=== PATIENT | male | born 1945 | race Caucasian/White ===

== ENCOUNTER 2017-09-14 20:55 | Inpatient (IN) | payer OTHER ==
[~2017-09-14] VITALS: Ht 175.3 cm; Wt 99.1 kg
[~2017-09-14 20:55] MED LIST: ALPR1TAB3 PO; BUPR-79 PO; CINN500T PO; LSN/10125 PO; MCR5 PO; METF-384 PO; MULT-506 PO; PROB1TAB16 PO; TRAZ-122 PO; ULT50X PO; VNTHFA/IN INH; ZCR80 PO; ZYP25 PO; [UNRECOGNIZED DRUG - OTHER] PO; [UNRECOGNIZED DRUG - OTHER] PO
--- NOTE | 2017-09-14 21:37 | EMERGENCY ROOM VISIT NOTE ---
History Report prepared by Candice: Anastasiia Cheney Under the Supervision of: Dr. Tera Fuller M.D. First contact with patient: 21:02 Stated Complaint: NEURO SX History of Present Illness The patient is a 72 year old male who presents to the Emergency Room with complaints of persistent general weakness for an unknown time. Per sister, the patient refused to leave his home, so she went to check on him. She found him on the floor of his home at 1300 and it took three hours to get him to stand up. She notes that the patient was leaning to his left and he seemed mentally abnormal, though she notes that she does not see him on a regular basis. It is unknown how long the patient was on the floor. He reports the need to urinate. He reports shaking that has been ongoing for several months. The patient has a history of COPD. He is a current smoker. He has a history of diabetes. His blood glucose sugar was 104. He reports living alone. He has a history of Parkinson's disease. He has a baseline rash to his face. He denies any congestion, vomiting, headache, or shortness of breath. Source of History: patient, family Onset: an unknown time Position: other (general) Quality: other (weakness) Timing: other (persistent) Associated Symptoms: + urinary symptoms (need to urinate, though cannot), No headache, No SOB, No vomiting Note: Denies any congestion. Review of Systems See HPI for pertinent positives & negatives. A total of 10 systems reviewed and were otherwise negative. Past Medical & Surgical Medical Problems: (1) Depression (2) DM (diabetes mellitus) (3) HTN (hypertension) (4) Hyperlipidemia (5) Left-sided weakness (6) Rhabdomyolysis Family History No pertinent family history Social History Smoking Status: Current Every Day Smoker Alcohol Use: heavy Drug Use: marijuana Marital Status: single Housing Status: lives alone Occupation Status: disabled Current/Historical Medications Scheduled Alprazolam (Xanax), 1 MG PO BID Bupropion (Wellbutrin Sr), 150 MG PO BID Cinnamon (Cinnamon), 1 TAB PO QAM Glyburide (Glyburide), 1 TAB PO BID Hctz/Lisinopril (Lisinopril/Hctz 10/12.5 Mg), 1 TAB PO QAM Metformin Hcl (Glucophage), 1,000 MG PO BID Multivitamin (Multivitamin), 1 TAB PO QAM Olanzapine (Olanzapine), 1 TAB PO BID Probiotic Product (Probiotic), 1 TAB PO QAM Simvastatin (Simvastatin), 1 TAB PO QPM Trazodone Hcl (Desyrel), 100 MG PO HS [Diabetic Formula], 1 TAB PO QAM [Gynnemasylzestra], 400 MG PO QAM Scheduled PRN Albuterol Hfa (Ventolin Hfa), 2 PUFFS INH Q4H PRN for SOB/Wheezing Tramadol HCl (Tramadol HCl), 50 MG PO Q12 PRN for Pain Allergies Coded Allergies: No Known Allergies (Verified , 09/14/17) Physical Exam Vital Signs Date Time Temp Pulse Resp B/P (MAP) Pulse Ox O2 Delivery O2 Flow Rate FiO2 09/14/17 22:46 81 109/86 94 Room Air 09/14/17 22:08 80 16 104/58 94 Room Air 09/14/17 21:33 Room Air 09/14/17 21:30 36.7 84 116/69 93 Room Air 09/14/17 21:15 86 Physical Exam GENERAL: Patient is in no acute distress. HEENT: No acute trauma, normocephalic atraumatic, mucous membranes dry, no nasal congestion, no scleral icterus. NECK: No stridor, no adenopathy, no meningismus, trachea is midline. LUNGS: Clear to auscultation bilaterally, no wheeze, no rhonchi, breath sounds equal. HEART: Mildly tachycardic with a regular rhythm. 3/6 systolic murmur. ABDOMEN: Soft, nontender, bowel sounds positive, no hernias, no peritonitis. EXTREMITIES: No cyanosis or edema, full range of motion of all the joints without pain or difficulty, no signs for acute trauma. NEUROLOGIC: No facial droop or slurred speech. No extremity drift. No focal motor deficits. Extremity tremor noted. SKIN: Flat erythematous rash on the face. No cellulitis. Medical Decision & Procedures ER Provider Diagnostic Interpretation: Radiology results as stated below per my review and radiologist interpretation: SINGLE VIEW CHEST CLINICAL HISTORY: Strokelike symptoms. FINDINGS: An AP, portable, upright chest radiograph is compared to study dated 09/11/2013. The examination is degraded by portable technique and patient rotation. The heart is top normal for projection and there is atherosclerotic calcification of the thoracic aorta. The pulmonary vasculature is noncongested. There is mild elevation of the left hemidiaphragm with associated atelectasis. No airspace consolidation or pleural effusion is identified. There is no pneumothorax. The skeletal structures are osteopenic. The bony thorax appears intact. IMPRESSION: No acute cardiopulmonary abnormality. Electronically signed by: Tera Jeffreis M.D. 09/14/2017 9:40 PM Dictated Date/Time: 09/14/2017 9:[address] SCAN OF THE BRAIN WITHOUT IV CONTRAST CLINICAL HISTORY: Strokelike symptoms. COMPARISON STUDY: CT of the brain dated 05/09/2016. TECHNIQUE: Unenhanced axial CT scan of the brain is performed from the vertex to the skull base. A dose lowering technique was utilized adhering to the principles of ALARA. CT DOSE: 614.27 mGy.cm FINDINGS: Brain parenchyma: There are age-related involutional changes noting mild subcortical and periventricular microangiopathic change. There is no hemorrhage, mass effect, or evidence of acute territorial ischemia by CT criteria. Rubi-white matter is preserved. No extra-axial fluid collection is seen. Ventricles, sulci, cisterns: Prominent secondary to involutional change. Intracranial vasculature: There is atherosclerotic calcification of the cavernous carotid arteries. Calvarium: Unremarkable. Sinuses and mastoids: Mild mucosal thickening is seen in the ethmoid sinuses. The remaining visualized paranasal sinuses are clear. The mastoid air cells are well pneumatized. Orbits: The bony orbits are grossly intact. There is a right ocular lens implant. IMPRESSION: There is no hemorrhage, mass effect, or evidence of acute territorial ischemia by CT criteria. Electronically signed by: Tera Jeffries M.D. 09/14/2017 9:55 PM Dictated Date/Time: 09/14/2017 9:53 PM Laboratory Results 09/14/17 21:28 Red Blood Count 4.32, Mean Corpuscular Volume 86.1, Mean Corpuscular Hemoglobin 28.5, Mean Corpuscular Hemoglobin Concent 33.1, Mean Platelet Volume 9.0, Neutrophils (%) (Auto) 59.2, Lymphocytes (%) (Auto) 27.0, Monocytes (%) (Auto) 9.9, Eosinophils (%) (Auto) 3.5, Basophils (%) (Auto) 0.3, Neutrophils # (Auto) 5.76, Lymphocytes # (Auto) 2.62, Monocytes # (Auto) 0.96, Eosinophils # (Auto) 0.34, Basophils # (Auto) 0.03 09/14/17 21:28 Test 09/14/17 21:14 09/14/17 21:28 09/14/17 21:29 Urine Color YELLOW Urine Appearance CLEAR (CLEAR) Urine pH 5.0 (4.5-7.5) Urine Specific [place] 1.019 (1.000-1.030) Urine Protein NEG (NEG) Urine Glucose (UA) NEG (NEG) Urine Ketones NEG (NEG) Urine Occult Blood NEG (NEG) Urine Nitrite NEG (NEG) Urine Bilirubin NEG (NEG) Urine Urobilinogen NEG (NEG) Urine Leukocyte Esterase NEG (NEG) Urine Opiates Screen NEG (NEG) Urine Methadone, Qualitative NEG (NEG) Urine Barbiturates NEG (NEG) Urine Phencyclidine (PCP) Level NEG (NEG) Ur Amphetamine/Methamphetamine NEG (NEG) MDMA (Ecstasy) Screen POS (NEG) Urine Benzodiazepines Screen POS (NEG) Urine Cocaine Metabolite NEG (NEG) Urine Marijuana (THC) NEG (NEG) White Blood Count 9.72 K/uL (4.8-10.8) Red Blood Count 4.32 M/uL (4.7-6.1) Hemoglobin 12.3 g/dL (14.0-18.0) Hematocrit 37.2 % (42-52) Mean Corpuscular Volume 86.1 fL (80-100) Mean Corpuscular Hemoglobin 28.5 pg (25-34) Mean Corpuscular Hemoglobin Concent 33.1 g/dl (32-36) Platelet Count 251 K/uL (130-400) Mean Platelet Volume 9.0 fL (7.4-10.4) Neutrophils (%) (Auto) 59.2 % Lymphocytes (%) (Auto) 27.0 % Monocytes (%) (Auto) 9.9 % Eosinophils (%) (Auto) 3.5 % Basophils (%) (Auto) 0.3 % Neutrophils # (Auto) 5.76 K/uL (1.4-6.5) Lymphocytes # (Auto) 2.62 K/uL (1.2-3.4) Monocytes # (Auto) 0.96 K/uL (0.11-0.59) Eosinophils # (Auto) 0.34 K/uL (0-0.5) Basophils # (Auto) 0.03 K/uL (0-0.2) RDW Standard Deviation 46.1 fL (36.4-46.3) RDW Coefficient of Variation 14.4 % (11.5-14.5) Immature Granulocyte % (Auto) 0.1 % Immature Granulocyte # (Auto) 0.01 K/uL (0.00-0.02) Anion Gap 9.0 mmol/L (3-11) Est Creatinine Clear Calc Drug Dose 76.0 ml/min Estimated GFR () 85.9 Estimated GFR (Non- 74.1 BUN/Creatinine Ratio 13.8 (10-20) Lactic Acid Level 1.2 mmol/L (0.4-2.0) Calcium Level 8.2 mg/dl (8.5-10.1) Magnesium Level 1.6 mg/dl (1.8-2.4) Total Bilirubin 0.3 mg/dl (0.2-1) Direct Bilirubin < 0.1 mg/dl (0-0.2) Aspartate Amino Transf (AST/SGOT) 27 U/L (15-37) Alanine Aminotransferase (ALT/SGPT) 25 U/L (12-78) Alkaline Phosphatase 61 U/L (45-117) Ammonia 33.1 umol/L (11-32) Total Creatine Kinase 894 U/L (39-308) Creatine Kinase MB 3.0 ng/ml (0.5-3.6) Creatine Kinase MB Ratio 0.3 (0-3.0) Troponin I < 0.015 ng/ml (0-0.045) Total Protein 6.6 gm/dl (6.4-8.2) Albumin 3.7 gm/dl (3.4-5.0) Thyroid Stimulating Hormone (TSH) 1.080 uIu/ml (0.300-4.500) Chemistry Specimen Hemolysis Ethyl Alcohol mg/dL < 3.0 mg/dl (0-3) Prothrombin Time 10.6 SECONDS (9.0-12.0) Prothromb Time International Ratio 1.0 (0.9-1.1) Activated Partial Thromboplast Time 27.4 SECONDS (21.0-31.0) Partial Thromboplastin Ratio 1.1 Laboratory results reviewed by me. Medications Administered Medications (Trade) Dose Ordered Sig/Jovanna Route Start Time Stop Time Status Last Admin Dose Admin Magnesium Sulfate (Magnesium Sulfate) 2 gm NOW STAT IV 09/14/17 22:08 09/14/17 22:09 DC 09/14/17 22:23 2 GM Sodium Chloride 500 ml @ 999 mls/hr Q31M STAT IV 09/14/17 22:26 09/14/17 22:56 DC 09/14/17 22:45 999 MLS/HR ECG Per My Interpretation Indication: weakness Rate (beats per minute): 87 Rhythm: normal sinus Findings: no ectopy (No PVC), other (No ST elevation) ED Course 2101: The patient was evaluated in room B12B. A complete history and physical exam was performed. 2110: The nurse reports that the patient urinated 500 ml. 2207: Ordered Magnesium Sulfate 2 gm IV 2225: Ordered Sodium Chloride 500 ml @ 999 mls/hr IV 4: I reassessed the patient at this time. I discussed the results and treatment plan with the patient. He states that he is a and is followed with the [facility]. I answered all pertaining questions that he had. He expressed understanding and verbalized agreement. 2299: I spoke with Dr. Bruno, [facility] hospitalist. We discussed the patient' s case. The patient will be evaluated by the [facility] for further management. Medical Decision The patient is a 72 year old male who presents to the ED with complaints of weakness. Differential diagnoses considered include stroke, infection, UTI, intracranial bleeding, dehydration, NM, anemia, sepsis, and electrolyte abnormality. There is no leukocytosis or concerning anemia. No kidney failure. Magnesium is low at 1.6. No hepatitis. Lactic acid level is not elevated making sepsis less likely. The patient appears to be in a euthyroid state. Chest film does not show pneumonia or CHF. Brain CT shows no acute bleed or mass-effect. EKG shows a normal sinus rhythm, no acute ischemia. Cardiac enzyme testing 1 is not consistent with acute cardiac injury. Ammonia level is very slightly elevated but I do not think high enough to cause confusion. Alcohol level is undetectable. Total CK is somewhat elevated consistent with some muscle breakdown from being on the floor today for around at least 3 hours. Urinalysis does not show infection. On exam, there are no focal neurologic deficits. The patient is awake and interactive. The patient received IV saline, IV magnesium. The patient is eating crackers, he seems improved. He presents with some increased weakness, a fall earlier, some confusion as per family. His mental state seems improved though I think now. Given the findings, further workup in the hospital is warranted. The cause for his entire presentation is not completely clear. I did speak with the patient, case management has been involved. I discussed the case with the on-call hospitalist. Medication Reconcilliation Current Medication List: was personally reviewed by me Blood Pressure Screening Patient's blood pressure: Normal blood pressure Consults Time Called: 2245 Consulting Physician: Dr. Bruno [facility] Returned Call: [phone] [facility] We discussed the patient's case. The patient will be evaluated by the [facility] for further management. Impression Primary Impression: Weakness Additional Impressions: Fall Dehydration Change in mental status Hypomagnesemia Scribe Attestation The scribe's documentation has been prepared under my direction and personally reviewed by me in its entirety. I confirm that the note above accurately reflects all work, treatment, procedures, and medical decision making performed by me. Departure Information Dispostion Being Evaluated By Hospitalist Referrals Jannet Kilgore M.D. (PCP) Problem Qualifiers
[2017-09-14 21:40] LABS: BASO % 0.3 %; BASO ABS # 0.03 K/uL (0-0.2); EOS % 3.5 %; EOS ABS # 0.34 K/uL (0-0.5); HEMATOCRIT 37.2 % (42-52); HEMOGLOBIN 12.3 g/dL (14.0-18.0); IG# 0.01 K/uL (0.00-0.02); LYMPH ABS # 2.62 K/uL (1.2-3.4); MEAN CELL VOLUME 86.1 fL (80-100); MEAN CORPUSCULAR HEMOGLOBIN 28.5 pg (25-34); MEAN CORPUSCULAR HGB CONC 33.1 g/dl (32-36); MONO % 9.9 %; MONO ABS # 0.96 K/uL (0.11-0.59); NEUT % 59.2 %; NEUT ABS # 5.76 K/uL (1.4-6.5); PLATELET COUNT 251 K/uL (130-400); RED CELL DISTRIBUTION WIDTH CV 14.4 % (11.5-14.5); RED CELL DISTRIBUTION WIDTH SD 46.1 fL (36.4-46.3); WHITE BLOOD COUNT 9.72 K/uL (4.8-10.8)
--- NOTE | 2017-09-14 21:42 | DIAGNOSTIC IMAGING REPORT ---
SINGLE VIEW CHEST CLINICAL HISTORY: Strokelike symptoms. FINDINGS: An AP, portable, upright chest radiograph is compared to study dated 09/11/2013. The examination is degraded by portable technique and patient rotation. The heart is top normal for projection and there is atherosclerotic calcification of the thoracic aorta. The pulmonary vasculature is noncongested. There is mild elevation of the left hemidiaphragm with associated atelectasis. No airspace consolidation or pleural effusion is identified. There is no pneumothorax. The skeletal structures are osteopenic. The bony thorax appears intact. IMPRESSION: No acute cardiopulmonary abnormality. Electronically signed by: Tera Jeffries M.D. 09/14/2017 9:40 PM Dictated Date/Time: 09/14/2017 9:39 PM
--- NOTE | 2017-09-14 21:57 | DIAGNOSTIC IMAGING REPORT ---
CT SCAN OF THE BRAIN WITHOUT IV CONTRAST CLINICAL HISTORY: Strokelike symptoms. COMPARISON STUDY: CT of the brain dated 05/09/2016. TECHNIQUE: Unenhanced axial CT scan of the brain is performed from the vertex to the skull base. A dose lowering technique was utilized adhering to the principles of ALARA. CT DOSE: 614.27 mGy.cm FINDINGS: Brain parenchyma: There are age-related involutional changes noting mild subcortical and periventricular microangiopathic change. There is no hemorrhage, mass effect, or evidence of acute territorial ischemia by CT criteria. Rubi-white matter is preserved. No extra-axial fluid collection is seen. Ventricles, sulci, cisterns: Prominent secondary to involutional change. Intracranial vasculature: There is atherosclerotic calcification of the cavernous carotid arteries. Calvarium: Unremarkable. Sinuses and mastoids: Mild mucosal thickening is seen in the ethmoid sinuses. The remaining visualized paranasal sinuses are clear. The mastoid air cells are well pneumatized. Orbits: The bony orbits are grossly intact. There is a right ocular lens implant. IMPRESSION: There is no hemorrhage, mass effect, or evidence of acute territorial ischemia by CT criteria. Electronically signed by: Tera Jeffries M.D. 09/14/2017 9:55 PM Dictated Date/Time: 09/14/2017 9:53 PM
[2017-09-14 22:00] LABS: PTT PATIENT 27.4 SECONDS (21.0-31.0)
[2017-09-14 22:04] LABS: BLOOD UREA NITROGEN 14 mg/dl (7-18); CALCIUM 8.2 mg/dl (8.5-10.1); CARBON DIOXIDE 26 mmol/L (21-32); CREATININE 1.02 mg/dl (0.60-1.40); GLUCOSE 107 mg/dl (70-99); SODIUM 139 mmol/L (136-145)
[2017-09-14] MEDS ORDERED: MAGNESIUM SULFATE 1GM / D5W 1 GM BAG IV STA (22:08)
[2017-09-14] MEDS ORDERED: SODIUM CHLORIDE 0.9% 500ML 500 ML IV STA (22:26)
[2017-09-14 22:31] LABS: ALBUMIN 3.7 gm/dl (3.4-5.0); ALKALINE PHOSPHATASE 61 U/L (45-117); ALT/SGPT 25 U/L (12-78); AST/SGOT 27 U/L (15-37); TOTAL PROTEIN 6.6 gm/dl (6.4-8.2)
[2017-09-14] MEDS ORDERED: ASPIRIN 81 MG CHEW PO STA (23:43)
[2017-09-15] VITALS (12 sets, daily range): BP systolic 83–131; BP diastolic 43–77; PULSE 72–92; TEMP 36.4–37; O2SAT 93–95; Ht 175.3 cm; Wt 99.1 kg
[2017-09-15] MEDS ORDERED: PROCHLORPERAZINE INJ 5 MG in SYRINGE 4 ML IV PRN (00:15)
[2017-09-15] MEDS ORDERED: ACETAMINOPHEN 325 MG TAB PO PRN (00:15)
[2017-09-15] MEDS ORDERED: GLUCOSE 10 TABS/TUBE PO PRN (00:15)
[2017-09-15] MEDS ORDERED: SODIUM CHLORIDE 0.9% 1000ML 1,000 ML IV ONE (00:15)
[2017-09-15] MEDS ORDERED: TRAMADOL HCL 50 MG TAB PO PRN (00:15)
[2017-09-15] MEDS ORDERED: PHARMACIST DISCHARGE MED REC CONSULT PRN (00:15)
[2017-09-15] MEDS ORDERED: DEXTROSE 50% 50 ML SYR IV PRN (00:15)
[2017-09-15] MEDS ORDERED: NITROGLYCERIN 0.4 MG SL PER TAB CHARGE SL PRN (00:15)
[2017-09-15] MEDS ORDERED: GLUCAGON FOR INJ 1 MG VIAL SQ PRN (00:15)
[2017-09-15] MEDS ORDERED: GLUCOSE 40% GEL 15 GM TUBE PO PRN (00:15)
[2017-09-15] MEDS ORDERED: INSULIN ASPART 100 UNITS/ML 3 ML PEN SC ONE (01:30)
[2017-09-15] MEDS ORDERED: INSULIN GLARGINE SOLOSTAR 100 UNITS/ML 3 ML PEN SC ONE (02:32)
--- NOTE | 2017-09-15 04:11 | HISTORY & PHYSICAL EXAMINATION ---
DATE OF ADMISSION: 09/14/2017 PRIMARY CARE DOCTOR: ELIANA. CHIEF COMPLAINT: Fall. HISTORY OF PRESENT ILLNESS: History obtained from patient, patient's sister, and records. Patient is a fair historian. Medical history significant for mood disorder, hypertension, hyperlipidemia, ongoing tobacco abuse, diabetes type 2 on oral meds, chronic anemia (baseline hemoglobin of 12), past alcohol abuse, ongoing tobacco abuse. Recent confinement April 2016 for encephalopathy secondary to alcohol intoxication, polysubstance abuse. This morning the patient's sister called patient at home to check on him. He was noted to have slurred speech. The patient's sister checked on the patient. She had always been worried about patient relapsing into his alcohol habit and patient somewhat being impulsive w/ taking his "psych pills." He was found home on the floor, awake but "obtunded" as per sister. As per patient, he has not drank alcohol in months. No alcoholic stench or empty liquor bottles when patient was found by sister at home. Patient denies chest pain, shortness of breath, syncope. Admits to not being sure about taking extra pills last night for mood, anxiety. New medication started for possible Parkinsons. Patient's sister helped him to the bed, gave him food and fluids. When she walked patient to help him to get to the bathroom, she noticed patient veering to the left side. Patient's sister worried about stroke. EMS called. Patient brought to Emergency Room. MEDICAL HISTORY: As above. SURGERIES: Parotidectomy, cataract surgery. HOME MEDICATIONS: As per list, glyburide, Glucophage, multivitamins, olanzapine, probiotic, simvastatin, trazodone, Desyrel, Ventolin, Xanax, bupropion, cinnamon diabetic formula. ALLERGIES: No known drug allergies. FAMILY HISTORY: Hypertension. PERSONAL AND SOCIAL HISTORY: Half pack a day. No chronic intake of alcoholic beverages. , lives by self . REVIEW OF SYSTEMS: As per HPI. All 10 systems reviewed. All other ROS negative. PHYSICAL EXAMINATION: VITAL SIGNS: Blood pressure was noted to be 116/69, pulse rate 84, RR 16, temperature 36.7, sats 93 on room air. GENERAL: Unkempt, obese. No respiratory distress. SKIN: Pallor, warm. HEENT: Pale palpebral conjunctiva. No ptosis. Dry mucosa. NECK: Short, supple. CHEST: Decreased effort, no tenderness. HEART: Regular rate and rhythm, no murmur. ABDOMEN: Some distention, nontender. EXTREMITIES: No edema. No gross deformities. No tenderness. NEUROLOGIC: Coherent, some deviation of the face to the left side on speech, unknown chronicity. Gait and stance not assessed. LABORATORY DATA: Hemoglobin was noted to be 12.3, hematocrit 7.2, white blood cell count 9.7, platelets 251. Sodium noted to be 139, potassium 4, chloride 104, CO2 26, BUN 14, creatinine 1, glucose 107. Mag 1.6, ammonia 32.1. CK was 394. Alcohol level was negative. UA positive for benzos and MDMA. CT head, no acute pathology. Chest x-ray, no acute finding. EKG as per my interpretation rate 85, normal sinus rhythm, right axis deviation. ASSESSMENT: 1. Encephalopathy likely secondary to polypharmacy (px on multiple home neuropsychotropics; patient also somewhat impulsive as per patient's sister's account regarding intake of higher doses than prescribed) rule out cerebrovascular accident with some left-sided weakness. 2. Mild rhabdomyolysis secondary to fall 3. hypertension, stable. 4. Ongoing tobacco abuse. 5. Past alcohol abuse. 6. Anxiety, mood disorder, anger issues unknown stability 7. Chronic anemia, hemoglobin baseline. 8. DM2 on oral meds, well controlled as of recent inpatient HgA1c of 7.3 last April 2016. PLAN: PCU neuro checks ASA for now for stroke prevention until stroke ruled out by MRI/MRA brain. May need additional stroke workup pending MRI results. Hold home neuropsychotropics for now until mentation improved. [facility], [facility]iatry visits) Follow CPK. IV fluids. ISS BG goal 140-180. Patient due for hemoglobin A1c check. Anemia workup. PT, OT eval. DVT prophylaxis with Lovenox subQ. DNR. Patient's sister requesting updates from providers Ms. Luzma Hester RN at [phone]. [facility]
[2017-09-15 05:20] LABS: BASO % 0.4 %; BASO ABS # 0.03 K/uL (0-0.2); EOS % 4.1 %; EOS ABS # 0.32 K/uL (0-0.5); HEMATOCRIT 33.5 % (42-52); HEMOGLOBIN 11.4 g/dL (14.0-18.0); IG# 0.01 K/uL (0.00-0.02); LYMPH % 31.7 %; LYMPH ABS # 2.47 K/uL (1.2-3.4); MEAN CELL VOLUME 86.6 fL (80-100); MEAN CORPUSCULAR HEMOGLOBIN 29.5 pg (25-34); MEAN PLATELET VOLUME 8.8 fL (7.4-10.4); MONO % 10.2 %; MONO ABS # 0.79 K/uL (0.11-0.59); NEUT % 53.5 %; NEUT ABS # 4.16 K/uL (1.4-6.5); PLATELET COUNT 217 K/uL (130-400); RED CELL DISTRIBUTION WIDTH CV 14.6 % (11.5-14.5); RED CELL DISTRIBUTION WIDTH SD 45.8 fL (36.4-46.3); RETIC COUNT % 1.1 % (0.5-2.0); WHITE BLOOD COUNT 7.78 K/uL (4.8-10.8)
[2017-09-15 05:38] LABS: BLOOD UREA NITROGEN 11 mg/dl (7-18); CARBON DIOXIDE 24 mmol/L (21-32); CREATININE 1.03 mg/dl (0.60-1.40); GLUCOSE 120 mg/dl (70-99); POTASSIUM 3.6 mmol/L (3.5-5.1); SODIUM 137 mmol/L (136-145)
[2017-09-15 05:44] LABS: CHOLESTEROL 79 mg/dl (0-200); LDL CHOLESTEROL CALCULATED 24 mg/dl; TRANSFERRIN 237 mg/dl (200-360)
[2017-09-15] MEDS: ENOXAPARIN 40 MG/0.4 ML SYR SC SCH (06:00)
[2017-09-15 07:21] LABS: HEMOGLOBIN A1C 7.3 % (4.5-5.6)
[2017-09-15] MEDS: INSULIN ASPART 100 UNITS/ML 3 ML PEN SC SCH ×4 (08:10→21:00)
[2017-09-15] MEDS: MULTIVITAMIN TAB PO SCH (08:11)
[2017-09-15] MEDS: NICOTINE 14 MG/24 HR TDSY TD SCH (08:12)
[2017-09-15] MEDS: LACTOBACILLUS ACIDOPHILUS (FLORANEX) TAB PO SCH (08:12)
[2017-09-15] MEDS: ASPIRIN 81 MG ECTAB PO SCH (08:12)
--- NOTE | 2017-09-15 13:49 | Progress Note ---
Medicine Progress Note Date & Time of Visit: Sep 15, 2017 at 13:25. Subjective Pt was seen and examined Lying in bed with no distress Pt said that he feels very sleeping he said that last thing that he remembered was that he took 1 extra ativan to help him sleep Pt said that he did not consume any alcohol He was recently starting on Parkinson med but he said that he has been tolerated the med well [facility] Denies any chest pain, palpitation, dizziness and SOB Objective Last 8 Hrs Date Time Temp Pulse Resp B/P (MAP) Pulse Ox O2 Delivery O2 Flow Rate FiO2 09/15/17 11:52 36.4 76 16 108/73 (85) 95 09/15/17 08:00 94 Room Air 09/15/17 07:50 85 131/48 (75) 81 83/43 (56) 84 114/76 (89) 09/15/17 07:08 36.5 74 16 115/77 (90) 94 Physical Exam: General- no acute distress, drowsy Head- atraumatic Eyes- PERRL, EOMI ENT- oropharynx clear Neck- supple, no JVD Lungs- clear to auscultation Heart- regular rhythm; Abdomen- normal bowel sounds, soft Extremities- no calf tenderness Neuro- alert, oriented, PERRL, EOMI Skin- warm & dry Laboratory Results: Last 24 Hours Test 09/14/17 21:14 09/14/17 21:28 09/14/17 21:29 09/15/17 02:11 Urine Color YELLOW Urine Appearance CLEAR Urine pH 5.0 Urine Specific [place] 1.019 Urine Protein NEG Urine Glucose (UA) NEG Urine Ketones NEG Urine Occult Blood NEG Urine Nitrite NEG Urine Bilirubin NEG Urine Urobilinogen NEG Urine Leukocyte Esterase NEG Urine Opiates Screen NEG Urine Methadone, Qualitative NEG Urine Barbiturates NEG Urine Phencyclidine (PCP) Level NEG Ur Amphetamine/Methamphetamine NEG MDMA (Ecstasy) Screen POS Urine Benzodiazepines Screen POS Urine Cocaine Metabolite NEG Urine Marijuana (THC) NEG White Blood Count 9.72 K/uL Red Blood Count 4.32 M/uL Hemoglobin 12.3 g/dL Hematocrit 37.2 % Mean Corpuscular Volume 86.1 fL Mean Corpuscular Hemoglobin 28.5 pg Mean Corpuscular Hemoglobin Concent 33.1 g/dl Platelet Count 251 K/uL Mean Platelet Volume 9.0 fL Neutrophils (%) (Auto) 59.2 % Lymphocytes (%) (Auto) 27.0 % Monocytes (%) (Auto) 9.9 % Eosinophils (%) (Auto) 3.5 % Basophils (%) (Auto) 0.3 % Neutrophils # (Auto) 5.76 K/uL Lymphocytes # (Auto) 2.62 K/uL Monocytes # (Auto) 0.96 K/uL Eosinophils # (Auto) 0.34 K/uL Basophils # (Auto) 0.03 K/uL RDW Standard Deviation 46.1 fL RDW Coefficient of Variation 14.4 % Immature Granulocyte % (Auto) 0.1 % Immature Granulocyte # (Auto) 0.01 K/uL Sodium Level 139 mmol/L Potassium Level 4.0 mmol/L Chloride Level 104 mmol/L Carbon Dioxide Level 26 mmol/L Anion Gap 9.0 mmol/L Blood Urea Nitrogen 14 mg/dl Creatinine 1.02 mg/dl Est Creatinine Clear Calc Drug Dose 76.0 ml/min Estimated GFR () 85.9 Estimated GFR (Non- 74.1 BUN/Creatinine Ratio 13.8 Random Glucose 107 mg/dl Estimated Average Glucose 163 mg/dl Hemoglobin A1c 7.3 % Lactic Acid Level 1.2 mmol/L Calcium Level 8.2 mg/dl Magnesium Level 1.6 mg/dl Total Bilirubin 0.3 mg/dl Direct Bilirubin < 0.1 mg/dl Aspartate Amino Transf (AST/SGOT) 27 U/L Alanine Aminotransferase (ALT/SGPT) 25 U/L Alkaline Phosphatase 61 U/L Ammonia 33.1 umol/L Total Creatine Kinase 894 U/L Creatine Kinase MB 3.0 ng/ml Creatine Kinase MB Ratio 0.3 Troponin I < 0.015 ng/ml Total Protein 6.6 gm/dl Albumin 3.7 gm/dl Thyroid Stimulating Hormone (TSH) 1.080 uIu/ml Chemistry Specimen Hemolysis Ethyl Alcohol mg/dL < 3.0 mg/dl Prothrombin Time 10.6 SECONDS Prothromb Time International Ratio 1.0 Activated Partial Thromboplast Time 27.4 SECONDS Partial Thromboplastin Ratio 1.1 Bedside Glucose 257 mg/dl Test 09/15/17 05:10 09/15/17 07:33 09/15/17 12:20 White Blood Count 7.78 K/uL Red Blood Count 3.87 M/uL Hemoglobin 11.4 g/dL Hematocrit 33.5 % Mean Corpuscular Volume 86.6 fL Mean Corpuscular Hemoglobin 29.5 pg Mean Corpuscular Hemoglobin Concent 34.0 g/dl Platelet Count 217 K/uL Mean Platelet Volume 8.8 fL Neutrophils (%) (Auto) 53.5 % Lymphocytes (%) (Auto) 31.7 % Monocytes (%) (Auto) 10.2 % Eosinophils (%) (Auto) 4.1 % Basophils (%) (Auto) 0.4 % Neutrophils # (Auto) 4.16 K/uL Lymphocytes # (Auto) 2.47 K/uL Monocytes # (Auto) 0.79 K/uL Eosinophils # (Auto) 0.32 K/uL Basophils # (Auto) 0.03 K/uL RDW Standard Deviation 45.8 fL RDW Coefficient of Variation 14.6 % Immature Granulocyte % (Auto) 0.1 % Immature Granulocyte # (Auto) 0.01 K/uL Absolute Reticulocyte Count 0.04 10^6/uL Percent Reticulocyte Count 1.1 % Sodium Level 137 mmol/L Potassium Level 3.6 mmol/L Chloride Level 106 mmol/L Carbon Dioxide Level 24 mmol/L Anion Gap 7.0 mmol/L Blood Urea Nitrogen 11 mg/dl Creatinine 1.03 mg/dl Est Creatinine Clear Calc Drug Dose 77.5 ml/min Estimated GFR () 84.9 Estimated GFR (Non- 73.3 BUN/Creatinine Ratio 10.3 Random Glucose 120 mg/dl Calcium Level 8.0 mg/dl Magnesium Level 2.2 mg/dl Iron Level 41 mcg/dl Total Iron Binding Capacity 293 mcg/dl Transferrin 237 mg/dl Transferrin % Saturation 12 % Ferritin 32.1 ng/ml Ammonia 33.0 umol/L Total Creatine Kinase 759 U/L Troponin I < 0.015 ng/ml Triglycerides Level 93 mg/dl Cholesterol Level 79 mg/dl HDL Cholesterol 36 mg/dl LDL Cholesterol, Calculated 24 mg/dl VLDL Cholesterol, Calculated 19 mg/dl Cholesterol/HDL Ratio 2.2 Vitamin B12 Level 317 pg/mL Folate 8.86 ng/mL Bedside Glucose 142 mg/dl 128 mg/dl Assessment & Plan Encephalopathy Possible related to polypharmacy ( on Xanax, Buproprion, olanzapine, trazodone) Sister said pt was having slurred speech on the phone and when found him on the floor he had left sided weakness. Need to R/o stroke CT head showed no intracranial abnormality No focal neuro deficit on exam MRI/MRA of the head pending Neurology consult Continue ASA for now No arrhythmia on tele monitor Continue monitor in tele Neuro check Mild rhabdomyolysis secondary to fall CK level was 759 received gentle hydration Check CK level in am Hypertension Hold HCTZ/Lisinopril BP stable. Tobacco abuse Counseling on smoking cessation Hx alcohol abuse. Pt denies any alcohol intake Alcohol level <3 Anxiety/Mood disorder [facility] for now Consider psych eval Chronic anemia Hemoglobin stable DM2 Hba1c 7.1 (09/14/17) Well control Continue monitor BS Oral DM med on hold DVT px on Lovenox subq Code Status DNR Current Inpatient Medications: Current Inpatient Medications Medications (Trade) Dose Ordered Sig/Jovanna Route Start Time Stop Time Status Last Admin Dose Admin Aspirin (Ecotrin Tab) 81 mg QAM PO 09/15/17 09:00 10/15/17 08:59 09/15/17 08:12 81 MG Enoxaparin Sodium (Lovenox Inj) 40 mg Q24H SC 09/15/17 06:00 10/15/17 05:59 Acetaminophen (Tylenol Tab) 650 mg Q4H PRN PO 09/15/17 00:15 10/15/17 00:14 Nitroglycerin (Nitrostat Tab) 0.4 mg UD PRN SL 09/15/17 00:15 10/15/17 00:14 Insulin Aspart (novoLOG ASPART) SLIDING SCALE If C... ACHS SC 09/15/17 06:30 10/15/17 06:59 Glucose (Glucose 40% Gel) 15-30 GRAMS 15 GRAMS... UD PRN PO 09/15/17 00:15 10/15/17 00:14 Glucose (Glucose Chew Tab) 4-8 Tablets 4 Tabl... UD PRN PO 09/15/17 00:15 10/15/17 00:14 Dextrose (Dextrose 50% 50ML Syringe) 25-50ML OF 50% DW IV FOR... UD PRN IV 09/15/17 00:15 10/15/17 00:14 Glucagon (Glucagon Inj) 1 mg UD PRN SQ 09/15/17 00:15 10/15/17 00:14 Miscellaneous Information (Pharmacist Discharge Med Rec Consult) 1 ea UD PRN N/A 09/15/17 00:15 10/15/17 00:14 Tramadol HCl (Ultram Tab) 25 mg Q6H PRN PO 09/15/17 00:15 10/15/17 00:14 Prochlorperazine Edisylate 5 mg/ Syringe 5 ml @ 5 mls/min Q6H PRN IV 09/15/17 00:15 10/15/17 00:14 Multivitamins (Multivitamin Tab) 1 tab QAM PO 09/15/17 09:00 10/15/17 08:59 09/15/17 08:11 1 TAB Lactobacillus Acidophilus (Floranex Tab) 4 tab QAM PO 09/15/17 09:00 10/15/17 08:59 09/15/17 08:12 4 TAB Insulin Glargine (Lantus Solostar Pen) 5 units DAILY SC 09/16/17 09:00 10/16/17 08:59 Nicotine (Nicoderm Cq 14MG Patch) 1 patch QAM TD 09/15/17 09:00 10/15/17 08:59 Miscellaneous (Remove Nicoderm Patch) 1 ea HS N/A 09/15/17 21:00 10/15/17 20:59
--- NOTE | 2017-09-15 14:14 | Neurology Consultation ---
Neurology Consultation Date of Consultation: Sep 15, 2017. Attending Physician: Yvrose Michele M.D. Primary Care Physician: No Doctor, Assigned Reason for Consultation: altered MS History of Present Illness Source: patient Te is a 72 year old male with a PMH mood disorder, HTN, DL, tobacco abuse, DM2, chronic anemia, past EtOH abuse, polysubstance abuse. According to chart he was having slurred speech this am reported by his sister. He was found at home on the floor awake but obtunded and lethargic. He was noted to have slurred speech. He is not sure if he was taking his pills correctly. He was given carbadopa/levadopa for parkinson's tremor but he wasn't taking it because it didn't agree with him. His sister helped him up off the floor and he was veering to the left when walking to the bathroom. His sister was worried that he relapsed back to his EtOH and substance abuse. He feels he is close to his baseline. denies CP, SOB, abdominal pain, one sided weakness, numbness tingling , N, V, cough cold, fever chills, night sweats Past Medical/Surgical History Medical Problems: (1) Alcohol intoxication Status: Acute (2) Change in mental status Status: Acute (3) Dehydration Status: Acute (4) Fall Status: Acute (5) Hypoglycemia Status: Acute (6) Hypomagnesemia Status: Acute (7) Hypotension Status: Acute (8) Weakness Status: Acute Social History Smoking Status: Unknown if ever smoked Drug Use: marijuana Marital Status: single Housing Status: lives alone Occupation Status: disabled Allergies Coded Allergies: No Known Allergies (Verified , 09/14/17) Current Inpatient Medications Current Inpatient Medications Medications (Trade) Dose Ordered Sig/Jovanna Route Start Time Stop Time Status Last Admin Dose Admin Aspirin (Ecotrin Tab) 81 mg QAM PO 09/15/17 09:00 10/15/17 08:59 09/15/17 08:12 81 MG Enoxaparin Sodium (Lovenox Inj) 40 mg Q24H SC 09/15/17 06:00 10/15/17 05:59 Acetaminophen (Tylenol Tab) 650 mg Q4H PRN PO 09/15/17 00:15 10/15/17 00:14 Nitroglycerin (Nitrostat Tab) 0.4 mg UD PRN SL 09/15/17 00:15 10/15/17 00:14 Insulin Aspart (novoLOG ASPART) SLIDING SCALE If C... ACHS SC 09/15/17 06:30 10/15/17 06:59 Glucose (Glucose 40% Gel) 15-30 GRAMS 15 GRAMS... UD PRN PO 09/15/17 00:15 10/15/17 00:14 Glucose (Glucose Chew Tab) 4-8 Tablets 4 Tabl... UD PRN PO 09/15/17 00:15 10/15/17 00:14 Dextrose (Dextrose 50% 50ML Syringe) 25-50ML OF 50% DW IV FOR... UD PRN IV 09/15/17 00:15 10/15/17 00:14 Glucagon (Glucagon Inj) 1 mg UD PRN SQ 09/15/17 00:15 10/15/17 00:14 Miscellaneous Information (Pharmacist Discharge Med Rec Consult) 1 ea UD PRN N/A 09/15/17 00:15 10/15/17 00:14 Tramadol HCl (Ultram Tab) 25 mg Q6H PRN PO 09/15/17 00:15 10/15/17 00:14 Prochlorperazine Edisylate 5 mg/ Syringe 5 ml @ 5 mls/min Q6H PRN IV 09/15/17 00:15 10/15/17 00:14 Multivitamins (Multivitamin Tab) 1 tab QAM PO 09/15/17 09:00 10/15/17 08:59 09/15/17 08:11 1 TAB Lactobacillus Acidophilus (Floranex Tab) 4 tab QAM PO 09/15/17 09:00 10/15/17 08:59 09/15/17 08:12 4 TAB Insulin Glargine (Lantus Solostar Pen) 5 units DAILY SC 09/16/17 09:00 10/16/17 08:59 Nicotine (Nicoderm Cq 14MG Patch) 1 patch QAM TD 09/15/17 09:00 10/15/17 08:59 Miscellaneous (Remove Nicoderm Patch) 1 ea HS N/A 09/15/17 21:00 10/15/17 20:59 Physical Exam Vital Signs (Past 24 Hrs): Date Time Temp Pulse Resp B/P (MAP) Pulse Ox O2 Delivery O2 Flow Rate FiO2 09/15/17 12:00 94 Room Air 09/15/17 11:52 36.4 76 16 108/73 (85) 95 09/15/17 08:00 94 Room Air 09/15/17 07:50 85 131/48 (75) 81 83/43 (56) 84 114/76 (89) 09/15/17 07:08 36.5 74 16 115/77 (90) 94 09/15/17 04:39 37.0 76 18 104/66 (79) 94 Room Air 09/15/17 04:00 Room Air 09/15/17 00:11 75 16 113/71 93 09/15/17 00:00 36.4 79 18 108/66 94 Room Air 09/14/17 22:46 81 109/86 94 Room Air 09/14/17 22:08 80 16 104/58 94 Room Air 09/14/17 21:33 Room Air 09/14/17 21:30 36.7 84 116/69 93 Room Air 09/14/17 21:15 86 Physical Exam: Constitutional:appearance nourished, dissolved. Ears, Nose, Mouth and Throat: mucous membranes moist, no injection and skin normal, eyes normal Cardiovascular: normal S-1 and S-2 and regular rate and rhythm Respiratory: course breath sounds Musculoskeletal: no peripheral edema and distant pulses Skin: no stigmata of neurocutaneous disease noted and normal and intact Eyes: extraocular muscles intact (EOMI) and pupils equal, round and reactive to light (PERRL) NEUROLOGIC EXAMINATION: Mental status: Alert and interactive, animated facial expression Oriented to full date and location, [facility], [facility] president, 2018 Oriented to person Speech fluent with no evidence of aphasia Cranial Nerves smile eye brow raise symmetric, tongue midline Reflexes: Deep tendon reflexes were symmetrical and graded 2/5. Plantar neutral Sensory: no sensory vibration, light touch Coordination: finger to nose without bi pass, bilaterally reaching tremor R>L, no resting tremor or cog wheeling Gait/Stance: Posture stands from sitting with no assistance, tandem gait, slightly unsteady Motor: Negative for pronator drift of out stretched arms with eyes closed. 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 5/5 bilaterally hip flex 5/5 Laboratory Results Past 24 Hours: 09/15/17 05:10 Red Blood Count 3.87, Mean Corpuscular Volume 86.6, Mean Corpuscular Hemoglobin 29.5, Mean Corpuscular Hemoglobin Concent 34.0, Mean Platelet Volume 8.8, Neutrophils (%) (Auto) 53.5, Lymphocytes (%) (Auto) 31.7, Monocytes (%) (Auto) 10.2, Eosinophils (%) (Auto) 4.1, Basophils (%) (Auto) 0.4, Neutrophils # (Auto ) 4.16, Lymphocytes # (Auto) 2.47, Monocytes # (Auto) 0.79, Eosinophils # (Auto ) 0.32, Basophils # (Auto) 0.03 09/15/17 05:10 Test 09/14/17 21:14 09/14/17 21:28 09/14/17 21:29 09/15/17 05:10 Urine Color YELLOW Urine Appearance CLEAR (CLEAR) Urine pH 5.0 (4.5-7.5) Urine Specific [place] 1.019 (1.000-1.030) Urine Protein NEG (NEG) Urine Glucose (UA) NEG (NEG) Urine Ketones NEG (NEG) Urine Occult Blood NEG (NEG) Urine Nitrite NEG (NEG) Urine Bilirubin NEG (NEG) Urine Urobilinogen NEG (NEG) Urine Leukocyte Esterase NEG (NEG) Urine Opiates Screen NEG (NEG) Urine Methadone, Qualitative NEG (NEG) Urine Barbiturates NEG (NEG) Urine Phencyclidine (PCP) Level NEG (NEG) Ur Amphetamine/Methamphetamine NEG (NEG) MDMA (Ecstasy) Screen POS (NEG) Urine Benzodiazepines Screen POS (NEG) Urine Cocaine Metabolite NEG (NEG) Urine Marijuana (THC) NEG (NEG) Estimated Average Glucose 163 mg/dl Hemoglobin A1c 7.3 % (4.5-5.6) Lactic Acid Level 1.2 mmol/L (0.4-2.0) Total Bilirubin 0.3 mg/dl (0.2-1) Direct Bilirubin < 0.1 mg/dl (0-0.2) Aspartate Amino Transf (AST/SGOT) 27 U/L (15-37) Alanine Aminotransferase (ALT/SGPT) 25 U/L (12-78) Alkaline Phosphatase 61 U/L (45-117) Creatine Kinase MB 3.0 ng/ml (0.5-3.6) Creatine Kinase MB Ratio 0.3 (0-3.0) Total Protein 6.6 gm/dl (6.4-8.2) Albumin 3.7 gm/dl (3.4-5.0) Thyroid Stimulating Hormone (TSH) 1.080 uIu/ml (0.300-4.500) Chemistry Specimen Hemolysis Ethyl Alcohol mg/dL < 3.0 mg/dl (0-3) Prothrombin Time 10.6 SECONDS (9.0-12.0) Prothromb Time International Ratio 1.0 (0.9-1.1) Activated Partial Thromboplast Time 27.4 SECONDS (21.0-31.0) Partial Thromboplastin Ratio 1.1 White Blood Count 7.78 K/uL (4.8-10.8) Red Blood Count 3.87 M/uL (4.7-6.1) Hemoglobin 11.4 g/dL (14.0-18.0) Hematocrit 33.5 % (42-52) Mean Corpuscular Volume 86.6 fL (80-100) Mean Corpuscular Hemoglobin 29.5 pg (25-34) Mean Corpuscular Hemoglobin Concent 34.0 g/dl (32-36) Platelet Count 217 K/uL (130-400) Mean Platelet Volume 8.8 fL (7.4-10.4) Neutrophils (%) (Auto) 53.5 % Lymphocytes (%) (Auto) 31.7 % Monocytes (%) (Auto) 10.2 % Eosinophils (%) (Auto) 4.1 % Basophils (%) (Auto) 0.4 % Neutrophils # (Auto) 4.16 K/uL (1.4-6.5) Lymphocytes # (Auto) 2.47 K/uL (1.2-3.4) Monocytes # (Auto) 0.79 K/uL (0.11-0.59) Eosinophils # (Auto) 0.32 K/uL (0-0.5) Basophils # (Auto) 0.03 K/uL (0-0.2) RDW Standard Deviation 45.8 fL (36.4-46.3) RDW Coefficient of Variation 14.6 % (11.5-14.5) Immature Granulocyte % (Auto) 0.1 % Immature Granulocyte # (Auto) 0.01 K/uL (0.00-0.02) Absolute Reticulocyte Count 0.04 10^6/uL (0.02-0.10) Percent Reticulocyte Count 1.1 % (0.5-2.0) Anion Gap 7.0 mmol/L (3-11) Est Creatinine Clear Calc Drug Dose 77.5 ml/min Estimated GFR () 84.9 Estimated GFR (Non- 73.3 BUN/Creatinine Ratio 10.3 (10-20) Calcium Level 8.0 mg/dl (8.5-10.1) Magnesium Level 2.2 mg/dl (1.8-2.4) Iron Level 41 mcg/dl (35-175) Total Iron Binding Capacity 293 mcg/dl (250-450) Transferrin 237 mg/dl (200-360) Transferrin % Saturation 12 % (20-50) Ferritin 32.1 ng/ml (8.0-388.0) Ammonia 33.0 umol/L (11-32) Total Creatine Kinase 759 U/L (39-308) Troponin I < 0.015 ng/ml (0-0.045) Triglycerides Level 93 mg/dl (0-150) Cholesterol Level 79 mg/dl (0-200) HDL Cholesterol 36 mg/dl LDL Cholesterol, Calculated 24 mg/dl VLDL Cholesterol, Calculated 19 mg/dl Cholesterol/HDL Ratio 2.2 Vitamin B12 Level 317 pg/mL (211-911) Folate 8.86 ng/mL (>5.38) Test 09/15/17 12:20 Bedside Glucose 128 mg/dl (70-99) Imaging CT head- : There is no hemorrhage, mass effect, or evidence of acute territorial ischemia by CT criteria. MRI brain- No acute intracranial abnormality. Impression 72 year old male s/p MS change- possible medication error Plan 1. MRI MRA brain - no acute findings 2. CT head with no hemorrhage 3. TTE- if not previously ordered 4. EtOH screen ordered. 5. ammonia level slightly elevated and CK elevated 6. aspirin 81 mg started- continue 7. polypharmacy - will need reviewed such as tramadol, trazodone, Xanax 8. smoking cessation strongly urged 9. PT/OT for discharge needs. 10. fall precautions 11. carotid doppler- evaluate for high grade stenosis 12. EtOH -screen was negative I have seen and discussed above patient with Dr Evan Lopes, neurology Paatient seen and above reviewed with Veronica Spaulding suspect a mix omf meds taken inappropriately was the cause of the event but several agent could reduce the seizure threshold or cause seizures so in addition to the dupelx and 2 d echo I am going to order an eeg exam show what to me looks mor like and essential tremor but [facility] and [facility] not have [facility] he claims that sinemet bid has heoped the tremor so shahida continue will check back tomorrow after the echo duplex and eeg but for now he appears back to what historically is his baseline Evan Lopes MD
[2017-09-15] MEDS ORDERED: LORAZEPAM 0.5 MG TAB PO SCH (14:15)
--- NOTE | 2017-09-15 15:24 | DIAGNOSTIC IMAGING REPORT ---
MRI OF THE BRAIN WITHOUT IV CONTRAST CLINICAL HISTORY: Left-sided weakness. COMPARISON STUDY: CT of the brain dated 09/14/2017. TECHNIQUE: MRI of the brain was performed utilizing various T1 and T2-weighted sequences in the axial, sagittal, and coronal planes. IV contrast was not administered for this examination. FINDINGS: Brain parenchyma: There are age-related involutional changes noting mild subcortical and periventricular microangiopathic disease. There is no hemorrhage or mass effect. There is no restricted diffusion to suggest acute ischemia. Rubi-white matter differentiation is preserved. No extra-axial fluid collection is seen. The cerebellar tonsils are normal in configuration. Ventricles, sulci, and cisterns: Prominent secondary to involutional change. Pituitary and sella: Unremarkable. Intracranial vasculature: Normal flow voids are maintained at the skull base. Orbits: The bony orbits are grossly intact. Orbital contents are normal in appearance noting a right ocular lens implant. Sinuses and mastoids: Mucosal thickening is noted in the ethmoid sinuses. The remaining paranasal sinuses and the mastoid air cells are clear. Calvarium: Unremarkable. Cervical cord: Partially visualized cervical spinal cord is normal in morphology and signal intensity. IMPRESSION: No acute intracranial abnormality. Electronically signed by: Tera Jeffries M.D. 09/15/2017 3:23 PM Dictated Date/Time: 09/15/2017 3:20 PM
--- NOTE | 2017-09-15 15:35 | DIAGNOSTIC IMAGING REPORT ---
MRA HEAD WITHOUT CONTRAST CLINICAL HISTORY: 72 years-old Male presenting with left-sided weakness, lightheadedness that started 2 days ago, blurred vision. TECHNIQUE: MR angiography of the head was performed without the use of intravenous contrast using 3-D [id number] technique. 3-D volumetric and/or maximum intensity projection (MIP) images were subsequently reconstructed for review. IV contrast: None. COMPARISON: None. FINDINGS: Anterior circulation: Intracranial portions of the internal carotid arteries patent to the level of the termini. Hypoplastic A1 segment of the right anterior cerebral artery. Otherwise anterior middle cerebral arteries widely patent. Anterior communicating artery patent. Posterior circulation: Codominant vertebral arteries. Intradural portions of the vertebral arteries patent. Posterior inferior cerebellar arteries patent. Basilar artery patent. Anterior inferior cerebellar arteries poorly visualized. Superior cerebellar and posterior cerebral arteries patent. Hypoplastic or aplastic posterior commuting arteries. IMPRESSION: 1. No significant stenosis, aneurysm, or focal vessel occlusion. Electronically signed by: Tee Sherman M.D. 09/15/2017 3:34 PM Dictated Date/Time: 09/15/2017 3:31 PM
--- NOTE | 2017-09-15 23:18 | DIAGNOSTIC IMAGING REPORT ---
CAROTID ARTERY ULTRASOUND CLINICAL HISTORY: Left-sided weakness. COMPARISON STUDY: None. TECHNIQUE: Real-time, grayscale, and color Doppler sonography of the carotid and vertebral arteries was performed. Images were viewed in the transverse and longitudinal planes. FINDINGS: There is mild atherosclerotic plaque. Velocity measurements are listed below. COMMON CAROTID PEAK SYSTOLIC VELOCITY (CM/S): RIGHT 52 LEFT 59 ICA PEAK SYSTOLIC VELOCITY (CM/S): RIGHT 47 LEFT 61 Systolic ratios between the internal to common carotid arteries are normal. Antegrade flow is seen in the vertebral arteries. The external carotid arteries are patent. Blood pressure in the right arm measured 111/69. Blood pressure in the left arm measured 116/71. IMPRESSION: No evidence for a hemodynamically significant stenosis. Electronically signed by: Romain Silva M.D. 09/15/2017 11:17 PM Dictated Date/Time: 09/15/2017 11:16 PM
[2017-09-16 04:11] VITALS: BP 107/70; PULSE 73; TEMP 36.8; O2SAT 92
[2017-09-16] MEDS: ENOXAPARIN 40 MG/0.4 ML SYR SC SCH (06:00)
[2017-09-16] MEDS: INSULIN ASPART 100 UNITS/ML 3 ML PEN SC SCH ×3 (06:30→16:30)
[2017-09-16 07:23] VITALS: BP 115/83; PULSE 73; TEMP 36.3; O2SAT 92
[2017-09-16] MEDS: ASPIRIN 81 MG ECTAB PO SCH (08:47)
[2017-09-16] MEDS: LACTOBACILLUS ACIDOPHILUS (FLORANEX) TAB PO SCH (08:48)
[2017-09-16] MEDS: MULTIVITAMIN TAB PO SCH (08:48)
[2017-09-16] MEDS: NICOTINE 14 MG/24 HR TDSY TD SCH (08:50)
[2017-09-16] MEDS ORDERED: INSULIN GLARGINE SOLOSTAR 100 UNITS/ML 3 ML PEN SC SCH (09:00)
--- NOTE | 2017-09-16 11:08 | ELECTROENCEPHALOGRAPH REPORT ---
REQUESTING DOCTOR: Dr. Evan Lopes. CLINICAL DIAGNOSIS: Transient confusional episode of uncertain cause, question seizures. ELECTROENCEPHALOGRAM DIAGNOSIS: Essentially normal during wakefulness. DESCRIPTION OF TRACING: This EEG obtained during full clinical wakefulness is of good technical quality with few or no muscle movement artifacts. Simultaneous video analysis of patient movement and behavior was obtained. Photic stimulation was performed. Hyperventilation was not. Drowsiness and light sleep were not seen. Under these conditions, there is evidence for normal appearing background rhythm in the alpha range of up to 9 Hz of maximum frequency and 30 microvolts of maximum amplitude. This is maximum posterior head regions and bilaterally symmetrical. Polymorphic mid frequency theta activity of modest voltage is seen over central regions in a symmetrical fashion without any lateralizing asymmetries. Beta activity is seen bifrontally. Photic stimulation provokes a modest driving response without a photomyogenic or photoparoxysmal component. At no time during the waking tracing is there evidence for potentially epileptogenic activity for polyspike or spike wave bursts, focal sharp waves or focal spikes. INTERPRETATION: This electroencephalography is essentially normal during wakefulness without evidence for focal or generalized encephalopathy and without evidence for potentially epileptogenic activity.
[2017-09-16 11:23] VITALS: BP 133/85; PULSE 76; TEMP 36.7; O2SAT 95
--- NOTE | 2017-09-16 13:35 | Neurology Progress Notes ---
Neurology Progress Note Date of Service Sep 16, 2017. Indio Tiwari is a 72 year old male with a PMH mood disorder, HTN, DL, tobacco abuse, DM2, chronic anemia, past EtOH abuse, polysubstance abuse. According to chart he was having slurred speech this am reported by his sister. He was found at home on the floor awake but obtunded and lethargic. He was noted to have slurred speech. He is not sure if he was taking his pills correctly. He was given carbadopa/levadopa for parkinson's tremor but he wasn't taking it because it didn't agree with him. His sister helped him up off the floor and he was veering to the left when walking to the bathroom. His sister was worried that he relapsed back to his EtOH and substance abuse. Today he states he is doing well and is anticipating discharge but does not have a ride. He is aware they are providing a taxi voucher. discussed EEG. denies CP, SOB, abdominal pain, one sided weakness, numbness tingling, N, V, cough cold, fever chills, night sweats Objective Date Time Temp Pulse Resp B/P (MAP) Pulse Ox O2 Delivery O2 Flow Rate FiO2 09/16/17 12:00 Room Air 09/16/17 11:23 36.7 76 16 133/85 (101) 95 09/16/17 08:00 Room Air 09/16/17 07:23 36.3 73 16 115/83 (94) 92 09/16/17 04:11 36.8 73 16 107/70 (82) 92 Room Air 09/16/17 04:00 Room Air 09/16/17 00:00 Room Air 09/15/17 23:23 36.7 72 20 100/63 (75) 93 Room Air 09/15/17 21:06 108/68 (81) 09/15/17 20:00 Room Air 09/15/17 19:35 37.0 92 18 93/56 (68) 93 Room Air 09/15/17 16:48 36.7 81 18 116/76 (89) 93 09/15/17 16:00 94 Room Air Last 24 Hours Test 09/15/17 16:35 09/15/17 21:02 09/16/17 07:44 09/16/17 11:33 Bedside Glucose 131 mg/dl 106 mg/dl 97 mg/dl 93 mg/dl Imaging: EEG-: This electroencephalography is essentially normal during wakefulness without evidence for focal or generalized encephalopathy and without evidence for potentially epileptogenic activity. Exam: Gen: alert NAD sitting on bedside lungs course breath sounds CV RRR skin erythema and macular scabbing lesions with silvery appearance ambulation: up and walking in the room with no assistive device appears stable neuro: knows 2018, [facility], [facility] Current Inpatient Medications Medications (Trade) Dose Ordered Sig/Jovanna Route Start Time Stop Time Status Last Admin Dose Admin Aspirin (Ecotrin Tab) 81 mg QAM PO 09/15/17 09:00 10/15/17 08:59 09/16/17 08:47 81 MG Enoxaparin Sodium (Lovenox Inj) 40 mg Q24H SC 09/15/17 06:00 10/15/17 05:59 Acetaminophen (Tylenol Tab) 650 mg Q4H PRN PO 09/15/17 00:15 10/15/17 00:14 Nitroglycerin (Nitrostat Tab) 0.4 mg UD PRN SL 09/15/17 00:15 10/15/17 00:14 Insulin Aspart (novoLOG ASPART) SLIDING SCALE If C... ACHS SC 09/15/17 06:30 10/15/17 06:59 Glucose (Glucose 40% Gel) 15-30 GRAMS 15 GRAMS... UD PRN PO 09/15/17 00:15 10/15/17 00:14 Glucose (Glucose Chew Tab) 4-8 Tablets 4 Tabl... UD PRN PO 09/15/17 00:15 10/15/17 00:14 Dextrose (Dextrose 50% 50ML Syringe) 25-50ML OF 50% DW IV FOR... UD PRN IV 09/15/17 00:15 10/15/17 00:14 Glucagon (Glucagon Inj) 1 mg UD PRN SQ 09/15/17 00:15 10/15/17 00:14 Tramadol HCl (Ultram Tab) 25 mg Q6H PRN PO 09/15/17 00:15 10/15/17 00:14 Prochlorperazine Edisylate 5 mg/ Syringe 5 ml @ 5 mls/min Q6H PRN IV 09/15/17 00:15 10/15/17 00:14 Multivitamins (Multivitamin Tab) 1 tab QAM PO 09/15/17 09:00 10/15/17 08:59 09/16/17 08:48 1 TAB Lactobacillus Acidophilus (Floranex Tab) 4 tab QAM PO 09/15/17 09:00 10/15/17 08:59 09/16/17 08:48 4 TAB Insulin Glargine (Lantus Solostar Pen) 5 units DAILY SC 09/16/17 09:00 10/16/17 08:59 09/16/17 08:47 5 UNITS Nicotine (Nicoderm Cq 14MG Patch) 1 patch QAM TD 09/15/17 09:00 10/15/17 08:59 Miscellaneous (Remove Nicoderm Patch) 1 ea HS N/A 09/15/17 21:00 10/15/17 20:59 Impression 72 year old male s/p MS change- possible medication error Plan 1. MRI MRA brain - no acute findings 2. CT head with no hemorrhage 3. TTE- if not previously ordered- ordered but not completed 4. EtOH screen - negative 5. ammonia level slightly elevated and CK elevated 6. aspirin 81 mg started- continue 7. polypharmacy - will need reviewed such as tramadol, trazodone, Xanax 8. smoking cessation strongly urged 9. PT/OT for discharge needs. 10. fall precautions 11. carotid doppler- no high grade stenosis 12. once all imaging is competed and negative ok to discharge to home. strongly urged evaluation of medication use by PCP 13. neurology as outpatient should be assigned at [facility] where his primary care doctor is also at [facility] I have discussed above patient with Dr Evan Lopes, neurology Above revewed and discussed with Veronica Avelar PAC Patient currently off the floor for testing and not seen physically chart and notes reviewed EEG normal but would not exclude a medication related seizure particularly in light of the history and the ck elevation that having benedict said most meds are now on hold We will off no neurological rx the tremor frankly looks more essential than parkinsonian but [facility] and he feels the medication helps so would continue the major concern would b the welburin which of all his current meds is most likely to reduce his seizure threshold He needs to follow up with his pcp for review of all his meds the welbutin and the tramadol particularly but for now neurology in [facility] does not need to see him unless his [facility] physician shahida desire us to do so and frankly I would recommend that psychiatry get involved on an outpatient basis as well [facility] if not already involved Evan Lopes MD
[2017-09-16 14:32] VITALS: BP 133/85; PULSE 76; TEMP 36.7; O2SAT 95
--- NOTE | 2017-09-16 15:46 | Progress Note ---
Medicine Progress Note Date & Time of Visit: Sep 16, 2017 at 15:22. Subjective Pt was seen and examined Lying in bed with no distress Pt said that now that he remembered that he took an additional trazodone and xanax He said that he could not fall asleep, so he took additional trazodone and xanax When i told him that i recommended him to cut the trazodone and xanax to half He was not too happy about it He said that the trazodone was increased about 3 months ago because he was unable to sleep Pt said that when he does not sleep well that caused him to be crain and irritated Very anxious to go home Denies any chest pain, palpitation, dizziness and SOB Objective Last 8 Hrs Date Time Temp Pulse Resp B/P (MAP) Pulse Ox O2 Delivery O2 Flow Rate FiO2 09/16/17 14:32 36.7 76 16 95 Room Air 09/16/17 12:00 Room Air 09/16/17 11:23 36.7 76 16 133/85 (101) 95 09/16/17 08:00 Room Air 09/16/17 07:23 36.3 73 16 115/83 (94) 92 Physical Exam: General- awake today Head- atraumatic Eyes- PERRL, EOMI ENT- oropharynx clear Neck- supple, no JVD Lungs- clear to auscultation Heart- regular rhythm; Abdomen- normal bowel sounds, soft Extremities- no calf tenderness Neuro- alert, oriented, PERRL, EOMI Skin- warm & dry Laboratory Results: Last 24 Hours Test 09/15/17 16:35 09/15/17 21:02 09/16/17 07:44 09/16/17 11:33 Bedside Glucose 131 mg/dl 106 mg/dl 97 mg/dl 93 mg/dl Assessment & Plan Encephalopathy Possible related to polypharmacy ( on Xanax, Buproprion, olanzapine, trazodone) Sister said pt was having slurred speech on the phone and when found him on the floor he had left sided weakness. Need to R/o stroke CT head showed no intracranial abnormality No focal neuro deficit on exam MRI/MRA of the head pending Neurology consult Continue ASA for now No arrhythmia on tele monitor Continue monitor in tele Neuro check 09/16 CT head negative for intracranial abnormality MRA/MRI of the head were negative carotid u/s showed no evidence for a hemodynamically significant stenosis. EEG showed no evidence for epileptogenic activity ECHO Pending No arrhythmia on tele monitor Advised pt to decrease the Xanax to 0.5 mg BID and trazodone to 50mg HS Pt said that he will not decrease the xanax and trazodone will defer it to his physician at the [facility] Follow up with neurology at the [facility] Mild rhabdomyolysis secondary to fall CK on admission was 894 CK level was 759 received gentle hydration Increase fluid intake Hypertension Resume HCTZ/Lisinopril on discharge BP stable. Tobacco abuse Counseling on smoking cessation Hx alcohol abuse. Pt denies any alcohol intake Alcohol level <3 Anxiety/Mood disorder Requested his health documents from [facility] Psych med on hold for now Will decrease Xanax to 0.5 mg BID Follow up with Psych at the [facility] Chronic anemia Hemoglobin stable DM2 Hba1c 7.3 (09/14/17) Well control Continue monitor BS Oral DM med on hold DVT px on Lovenox subq Code Status DNR Disposition Follow up with your physicians at the [facility] Discharge home with home health services Consultants: Neuro Current Inpatient Medications: Current Inpatient Medications Medications (Trade) Dose Ordered Sig/Jovanna Route Start Time Stop Time Status Last Admin Dose Admin Aspirin (Ecotrin Tab) 81 mg QAM PO 09/15/17 09:00 10/15/17 08:59 09/16/17 08:47 81 MG Enoxaparin Sodium (Lovenox Inj) 40 mg Q24H SC 09/15/17 06:00 10/15/17 05:59 Acetaminophen (Tylenol Tab) 650 mg Q4H PRN PO 09/15/17 00:15 10/15/17 00:14 Nitroglycerin (Nitrostat Tab) 0.4 mg UD PRN SL 09/15/17 00:15 10/15/17 00:14 Insulin Aspart (novoLOG ASPART) SLIDING SCALE If C... ACHS SC 09/15/17 06:30 10/15/17 06:59 Glucose (Glucose 40% Gel) 15-30 GRAMS 15 GRAMS... UD PRN PO 09/15/17 00:15 10/15/17 00:14 Glucose (Glucose Chew Tab) 4-8 Tablets 4 Tabl... UD PRN PO 09/15/17 00:15 10/15/17 00:14 Dextrose (Dextrose 50% 50ML Syringe) 25-50ML OF 50% DW IV FOR... UD PRN IV 09/15/17 00:15 10/15/17 00:14 Glucagon (Glucagon Inj) 1 mg UD PRN SQ 09/15/17 00:15 10/15/17 00:14 Tramadol HCl (Ultram Tab) 25 mg Q6H PRN PO 09/15/17 00:15 10/15/17 00:14 Prochlorperazine Edisylate 5 mg/ Syringe 5 ml @ 5 mls/min Q6H PRN IV 09/15/17 00:15 10/15/17 00:14 Multivitamins (Multivitamin Tab) 1 tab QAM PO 09/15/17 09:00 10/15/17 08:59 09/16/17 08:48 1 TAB Lactobacillus Acidophilus (Floranex Tab) 4 tab QAM PO 09/15/17 09:00 10/15/17 08:59 09/16/17 08:48 4 TAB Insulin Glargine (Lantus Solostar Pen) 5 units DAILY SC 09/16/17 09:00 10/16/17 08:59 09/16/17 08:47 5 UNITS Nicotine (Nicoderm Cq 14MG Patch) 1 patch QAM TD 09/15/17 09:00 10/15/17 08:59 Miscellaneous (Remove Nicoderm Patch) 1 ea HS N/A 09/15/17 21:00 10/15/17 20:59
--- NOTE | 2017-09-16 16:04 | Discharge Instructions ---
Discharge Instructions Date of Service Sep 16, 2017. Admission Reason for Admission: Left-Sided Weakness, Rhabomyolysis Discharge Discharge Diagnosis / Problem: Altered Mental Status, Mild Rhabdomyolysis, Anxiety/Mood disorder Discharge Goals Goal(s): Decrease discomfort, Improve function, Increase independence, Improve disease control Activity Recommendations Activity Limitations: resume your previous activity (as tolerated) . Instructions / Follow-Up Instructions / Follow-Up Follow up with your primary care provider at the [facility] within 1 week (Please call to schedule follow appointment) Follow up with neurology at the [facility] Please decrease the trazodone 50mg Hs and Xanax to 0.5 mg BID Please hold next dose of trazodone, Xanax and tramadol if you become drowsy and lethargy Do not drive or operate any machine after taking trazodone, Xanax and tramadol Counseling on smoking cessation Continue physical therapy (Case management arranged you with home [facility] ) Fall precaution Current Hospital Diet Patient's current hospital diet: AHA Diet (Heart Healthy), Diabetes Type 2 Diet Discharge Diet Recommended Diet: AHA Diet (Heart Healthy), Diabetes Type 2 Diet Pending Studies Studies pending at discharge: no Laboratory Results Hemoglobin A1c Test 09/14/17 21:28 Range/Units Estimated Average Glucose 163 mg/dl Hemoglobin A1c 7.3 H 4.5-5.6 % Lipid Panel Test 09/15/17 05:10 Range/Units Triglycerides Level 93 0-150 mg/dl Cholesterol Level 79 0-200 mg/dl HDL Cholesterol 36 mg/dl Cholesterol/HDL Ratio 2.2 LDL Cholesterol, Calculated 24 mg/dl Medical Emergencies . Who to Call and When: Medical Emergencies: If at any time you feel your situation is an emergency, please call 911 immediately. . Non-Emergent Contact Non-Emergency issues call your: Primary Care Provider Call Non-Emergent contact if: you have any medication questions . . "Provider Documentation" section prepared by Yvrose Michele. .
--- NOTE | 2017-09-16 16:11 | ECHOCARDIOGRAM REPORT ---
*NOTICE TO RECEIVING [employer] This information is strictly Confidential and protected under [place] law. [place] law prohibits you from making any further disclosure of this information unless further disclosure is expressly permitted by the written consent of the person to whom it pertains or is authorized by law. A general authorization for the release of medical or other information is not sufficient for this purpose. Hospital accepts no responsibility if the information is made available to any other person, INCLUDING THE PATIENT. Interpretation Summary * Name: FANY BENAVIDEZ Study Date: 09/16/2017 02:35 PM BP: 108/73 mmHg * Patient Location: [facility]\S\N285\[id number]\1 HR: 82 * : 1945 (M/d/yyyy) Gender: Male Height: 69 in * Age: 72 yrs Ethnicity: [place] Weight: 218 lb * Ordering Physician: Veronica Avelar * Referring Physician: Self, Referred * Performed By: Barb Navarrete RDCS * * Reason For Study: Alt. of Consciousness * BSA: 2.1 m2 * -- Conclusions -- * No significant change compared to previous study of 09/12/17. * Normal LV chamber size with moderate concentric LVH. * Normal LV systolic function, EF 55-60%. * No segmental left ventricular wall motion abnormalities are noted. * Grade I diastolic dysfunction. * Mild aortic stenosis. * The interatrial septum is intact with no evidence for an atrial septal defect. * Injection of contrast documented no interatrial shunt. Procedure Details * A complete two-dimensional transthoracic echocardiogram was performed (2D, M-mode, Doppler and color flow Doppler). * A saline contrast injection was performed to assess for cardiac shunting. * The injection was performed through an intravenous line in the right arm. * The attending nurse who injected the saline contrast was Leigh Mcclelland RN. * A total of 20 cc of agitated saline was given. Left Ventricle * The left ventricle is normal in size. * There is moderate concentric left ventricular hypertrophy. * Ejection Fraction = 55-60%. * Left ventricular systolic function is normal. * No segmental left ventricular wall motion abnormalities are noted. * The left ventricular wall motion is normal. Right Ventricle * The right ventricular cavity size is normal (basal dimension <4.2 cm in right ventricular apical 4-chamber view). * The right ventricular systolic function is normal as assessed by tricuspid annular plane systolic excursion (TAPSE) (normal >1.5 cm). Atria * The left atrium is mildly dilated. * Right atrial size is normal. * The interatrial septum is intact with no evidence for an atrial septal defect. * Injection of contrast documented no interatrial shunt. Mitral Valve * The mitral valve is normal in structure and function. Tricuspid Valve * The tricuspid valve is normal in structure and function. Aortic Valve * The aortic valve is not well visualized. * Mild valvular aortic stenosis. * There is no significant aortic regurgitation. Pulmonic Valve * The pulmonary valve is not well seen, but the Doppler examination is normal without significant regurgitation or stenosis. Great Vessels * The aortic root is normal size. Pericardium/Pleural * There is no pericardial effusion. Left Ventricular Diastolic Function * Grade I diastolic dysfunction, (abnormal relaxation pattern). MMode 2D Measurements and Calculations IVSd 1.8 cm IVSs 2.0 cm LVIDd 4.2 cm LVIDs 2.8 cm LVPWd 1.4 cm LVPWs 1.8 cm IVS/LVPW 1.3 FS 32.8 % EDV(Teich) 80.3 ml ESV(Teich) 30.8 ml EF(Teich) 61.6 % EDV(cubed) 76.2 ml ESV(cubed) 23.1 ml EF(cubed) 69.7 % % IVS thick 8.7 % % LVPW thick 26.8 % LV mass(C)d 279.6 grams LV mass(C)dI 130.5 grams/m\S\2 LV mass(C)s 217.9 grams LV mass(C)sI 101.7 grams/m\S\2 SV(Teich) 49.5 ml SI(Teich) 23.1 ml/m\S\2 SV(cubed) 53.1 ml SI(cubed) 24.8 ml/m\S\2 Ao root diam 3.8 cm Ao root area 11.6 cm\S\2 ACS 1.4 cm LA dimension 4.0 cm LA/Ao 1.0 LVOT diam 2.1 cm LVOT area 3.5 cm\S\2 LVAd ap4 19.3 cm\S\2 LVLd ap4 7.9 cm EDV(MOD-sp4) 43.3 ml EDV(sp4-el) 40.1 ml LVAs ap4 10.7 cm\S\2 LVLs ap4 6.7 cm ESV(MOD-sp4) 15.9 ml ESV(sp4-el) 14.6 ml EF(MOD-sp4) 63.4 % EF(sp4-el) 63.5 % LVAd ap2 20.5 cm\S\2 LVLd ap2 8.4 cm EDV(MOD-sp2) 47.6 ml EDV(sp2-el) 42.6 ml LVAs ap2 12.5 cm\S\2 LVLs ap2 7.6 cm ESV(MOD-sp2) 20.1 ml ESV(sp2-el) 17.5 ml EF(MOD-sp2) 57.9 % EF(sp2-el) 58.9 % LVLd %diff 6.1 % EDV(MOD-bp) 46.1 ml LVLs %diff 12.7 % ESV(MOD-bp) 18.7 ml EF(MOD-bp) 59.4 % SV(MOD-sp4) 27.4 ml SI(MOD-sp4) 12.8 ml/m\S\2 SV(MOD-sp2) 27.6 ml SI(MOD-sp2) 12.9 ml/m\S\2 SV(MOD-bp) 27.4 ml SI(MOD-bp) 12.8 ml/m\S\2 SV(sp4-el) 25.4 ml SI(sp4-el) 11.9 ml/m\S\2 SV(sp2-el) 25.1 ml SI(sp2-el) 11.7 ml/m\S\2 Doppler Measurements and Calculations MV E max joselito 70.6 cm/sec MV A max joselito 95.0 cm/sec MV E/A 0.74 MV dec time 0.29 sec Ao V2 max 303.7 cm/sec Ao max PG 36.9 mmHg Ao max PG (full) 34.0 mmHg Ao V2 mean 217.1 cm/sec Ao mean PG 21.3 mmHg Ao mean PG (full) 19.8 mmHg Ao V2 VTI 63.3 cm JAYLA(I,A) 1.1 cm\S\2 JAYLA(I,D) 1.1 cm\S\2 JAYLA(V,A) 0.97 cm\S\2 JAYLA(V,D) 0.97 cm\S\2 AI max joselito 382.0 cm/sec AI max PG 58.4 mmHg AI dec slope 423.2 cm/sec\S\2 AI P1/2t 264.4 msec LV V1 max PG 2.9 mmHg LV V1 mean PG 1.5 mmHg LV V1 max 85.3 cm/sec LV V1 mean 56.1 cm/sec LV V1 VTI 21.0 cm SV(Ao) 736.5 ml SI(Ao) 343.7 ml/m\S\2 SV(LVOT) 72.6 ml SI(LVOT) 33.9 ml/m\S\2 PA V2 max 94.0 cm/sec PA max PG 3.5 mmHg
[2017-09-16 16:32] VITALS: BP 125/82; PULSE 86; TEMP 36.5; O2SAT 96
--- NOTE | 2017-09-20 10:23 | Discharge Summary ---
Discharge Summary Date of Service Sep 20, 2017. Discharge Summary Admission Date: Sep 14, 2017 at 23:35 Discharge Date: Sep 16, 2017 Discharge Disposition: Home with services Principal Diagnosis: Altered Mental Status Secondary Diagnoses/Problems: Mild Rhabdomyolysis Anxiety/Mood disorder Hx alcohol abuse HTN Tobacco abuse Chronic anemia DM type 2 Procedures: CAROTID ARTERY ULTRASOUND CLINICAL HISTORY: Left-sided weakness. COMPARISON STUDY: None. TECHNIQUE: Real-time, grayscale, and color Doppler sonography of the carotid and vertebral arteries was performed. Images were viewed in the transverse and longitudinal planes. FINDINGS: There is mild atherosclerotic plaque. Velocity measurements are listed below. COMMON CAROTID PEAK SYSTOLIC VELOCITY (CM/S): RIGHT 52 LEFT 59 ICA PEAK SYSTOLIC VELOCITY (CM/S): RIGHT 47 LEFT 61 Systolic ratios between the internal to common carotid arteries are normal. Antegrade flow is seen in the vertebral arteries. The external carotid arteries are patent. Blood pressure in the right arm measured 111/69. Blood pressure in the left arm measured 116/71. IMPRESSION: No evidence for a hemodynamically significant stenosis. Electronically signed by: Romain Silva M.D. 09/15/2017 11:17 PM Dictated Date/Time: 09/15/2017 11:16 PM MRI OF THE BRAIN WITHOUT IV CONTRAST CLINICAL HISTORY: Left-sided weakness. COMPARISON STUDY: CT of the brain dated 09/14/2017. TECHNIQUE: MRI of the brain was performed utilizing various T1 and T2-weighted sequences in the axial, sagittal, and coronal planes. IV contrast was not administered for this examination. FINDINGS: Brain parenchyma: There are age-related involutional changes noting mild subcortical and periventricular microangiopathic disease. There is no hemorrhage or mass effect. There is no restricted diffusion to suggest acute ischemia. Rubi-white matter differentiation is preserved. No extra-axial fluid collection is seen. The cerebellar tonsils are normal in configuration. Ventricles, sulci, and cisterns: Prominent secondary to involutional change. Pituitary and sella: Unremarkable. Intracranial vasculature: Normal flow voids are maintained at the skull base. Orbits: The bony orbits are grossly intact. Orbital contents are normal in appearance noting a right ocular lens implant. Sinuses and mastoids: Mucosal thickening is noted in the ethmoid sinuses. The remaining paranasal sinuses and the mastoid air cells are clear. Calvarium: Unremarkable. Cervical cord: Partially visualized cervical spinal cord is normal in morphology and signal intensity. IMPRESSION: No acute intracranial abnormality. Electronically signed by: Tera Jeffries M.D. 09/15/2017 3:23 PM Dictated Date/Time: 09/15/2017 3:20 PM MRA HEAD WITHOUT CONTRAST CLINICAL HISTORY: 72 years-old Male presenting with left-sided weakness, lightheadedness that started 2 days ago, blurred vision. TECHNIQUE: MR angiography of the head was performed without the use of intravenous contrast using 3-D [id number] technique. 3-D volumetric and/or maximum intensity projection (MIP) images were subsequently reconstructed for review. IV contrast: None. COMPARISON: None. FINDINGS: Anterior circulation: Intracranial portions of the internal carotid arteries patent to the level of the termini. Hypoplastic A1 segment of the right anterior cerebral artery. Otherwise anterior middle cerebral arteries widely patent. Anterior communicating artery patent. Posterior circulation: Codominant vertebral arteries. Intradural portions of the vertebral arteries patent. Posterior inferior cerebellar arteries patent. Basilar artery patent. Anterior inferior cerebellar arteries poorly visualized. Superior cerebellar and posterior cerebral arteries patent. Hypoplastic or aplastic posterior commuting arteries. IMPRESSION: 1. No significant stenosis, aneurysm, or focal vessel occlusion. Electronically signed by: Tee Sherman M.D. 09/15/2017 3:34 PM Dictated Date/Time: 09/15/2017 3:31 PM ECHO Interpretation Summary * Name: FANY BENAVIDEZ Study Date: 09/16/2017 02:35 PM BP: 108/73 mmHg * Patient Location: [facility]\\S\\1 HR: 82 * : 1945 (M/d/yyyy) Gender: Male Height: 69 in * Age: 72 yrs Ethnicity: [place] Weight: 218 lb * Ordering Physician: Veronica Avelar * Referring Physician: Self, Referred * Performed By: Barb Navarrete RDCS * * Reason For Study: Alt. of Consciousness * BSA: 2.1 m2 * -- Conclusions -- * No significant change compared to previous study of 09/12/17. * Normal LV chamber size with moderate concentric LVH. * Normal LV systolic function, EF 55-60%. * No segmental left ventricular wall motion abnormalities are noted. * Grade I diastolic dysfunction. * Mild aortic stenosis. * The interatrial septum is intact with no evidence for an atrial septal defect. * Injection of contrast documented no interatrial shunt. Procedure Details * A complete two-dimensional transthoracic echocardiogram was performed (2D, M- mode, Doppler and color flow Doppler). * A saline contrast injection was performed to assess for cardiac shunting. * The injection was performed through an intravenous line in the right arm. * The attending nurse who injected the saline contrast was Leigh Mcclelland RN. * A total of 20 cc of agitated saline was given. Left Ventricle * The left ventricle is normal in size. * There is moderate concentric left ventricular hypertrophy. * Ejection Fraction = 55-60%. * Left ventricular systolic function is normal. * No segmental left ventricular wall motion abnormalities are noted. * The left ventricular wall motion is normal. Right Ventricle * The right ventricular cavity size is normal (basal dimension <4.2 cm in right ventricular apical 4-chamber view). * The right ventricular systolic function is normal as assessed by tricuspid annular plane systolic excursion (TAPSE) (normal >1.5 cm). Atria * The left atrium is mildly dilated. * Right atrial size is normal. * The interatrial septum is intact with no evidence for an atrial septal defect. * Injection of contrast documented no interatrial shunt. Mitral Valve * The mitral valve is normal in structure and function. Tricuspid Valve * The tricuspid valve is normal in structure and function. Aortic Valve * The aortic valve is not well visualized. * Mild valvular aortic stenosis. * There is no significant aortic regurgitation. Pulmonic Valve * The pulmonary valve is not well seen, but the Doppler examination is normal without significant regurgitation or stenosis. Great Vessels * The aortic root is normal size. Pericardium/Pleural * There is no pericardial effusion. Left Ventricular Diastolic Function * Grade I diastolic dysfunction, (abnormal relaxation pattern). Consultations: Neuro Medication Reconciliation Continued Medications: Albuterol Hfa (Ventolin Hfa) 200 Puffs/35579 Mcg Aers 2 PUFFS INH Q4H PRN for SOB/Wheezing Alprazolam (Xanax) 1 Mg Tab 0.5 MG PO BID Bupropion (Wellbutrin Sr) 150 Mg Ertab 150 MG PO BID, TAB Cinnamon (Cinnamon) 500 Mg Tab 1 TAB PO QAM Glyburide (Glyburide) 5 Mg Tab 1 TAB PO BID Hctz/Lisinopril (Lisinopril/Hctz 10/12.5 Mg) 1 Ea Tab 1 TAB PO QAM Metformin Hcl (Glucophage) 1,000 Mg Tab 1000 MG PO BID, TAB Multivitamin (Multivitamin) Tab 1 TAB PO QAM Olanzapine (Olanzapine) 2.5 Mg Tab 1 TAB PO BID Probiotic Product (Probiotic) 1 Tab Tab 1 TAB PO QAM Simvastatin (Simvastatin) 80 Mg Tab 1 TAB PO QPM Tramadol HCl (Tramadol HCl) 50 Mg Tab 50 MG PO Q12 PRN for Pain for 5 Days, #10 TAB Trazodone Hcl (Desyrel) 100 Mg Tab 0.5 MG PO HS [Diabetic Formula] () 1 TAB PO QAM [Gynnemasylzestra] () 400 MG PO QAM Admission Information HPI (per Admitting provider): CHIEF COMPLAINT: Fall. HISTORY OF PRESENT ILLNESS: History obtained from patient, patient's sister, and records. Patient is a fair historian. Medical history significant for mood disorder, hypertension, hyperlipidemia, ongoing tobacco abuse, diabetes type 2 on oral meds, chronic anemia (baseline hemoglobin of 12), past alcohol abuse, ongoing tobacco abuse. Recent confinement April 2016 for encephalopathy secondary to alcohol intoxication, polysubstance abuse. This morning the patient's sister called patient at home to check on him. He was noted to have slurred speech. The patient's sister checked on the patient. She had always been worried about patient relapsing into his alcohol habit and patient somewhat being impulsive w/ taking his "psych pills." He was found home on the floor, awake but "obtunded" as per sister. As per patient, he has not drank alcohol in months. No alcoholic stench or empty liquor bottles when patient was found by sister at home. Patient denies chest pain, shortness of breath, syncope. Admits to not being sure about taking extra pills last night for mood, anxiety. New medication started for possible Parkinsons. Patient's sister helped him to the bed, gave him food and fluids. When she walked patient to help him to get to the bathroom, she noticed patient veering to the left side. Patient's sister worried about stroke. EMS called. Patient brought to Emergency Room. Physical Exam (per Admitting): PHYSICAL EXAMINATION: VITAL SIGNS: Blood pressure was noted to be 116/69, pulse rate 84, RR 16, temperature 36.7, sats 93 on room air. GENERAL: Unkempt, obese. No respiratory distress. SKIN: Pallor, warm. HEENT: Pale palpebral conjunctiva. No ptosis. Dry mucosa. NECK: Short, supple. CHEST: Decreased effort, no tenderness. HEART: Regular rate and rhythm, no murmur. ABDOMEN: Some distention, nontender. EXTREMITIES: No edema. No gross deformities. No tenderness. NEUROLOGIC: Coherent, some deviation of the face to the left side on speech, unknown chronicity. Gait and stance not assessed. Hospital Course Encephalopathy Possible related to polypharmacy ( on Xanax, Buproprion, olanzapine, trazodone) Sister said pt was having slurred speech on the phone and when found him on the floor he had left sided weakness. Need to R/o stroke CT head showed no intracranial abnormality No focal neuro deficit on exam MRI/MRA of the head pending Neurology consult Continue ASA for now No arrhythmia on tele monitor Continue monitor in tele Neuro check 09/16 CT head negative for intracranial abnormality MRA/MRI of the head were negative carotid u/s showed no evidence for a hemodynamically significant stenosis. EEG showed no evidence for epileptogenic activity ECHO Pending No arrhythmia on tele monitor Advised pt to decrease the Xanax to 0.5 mg BID and trazodone to 50mg HS Pt said that he will not decrease the xanax and trazodone will defer it to his physician at the [facility] Follow up with neurology at the [facility] Mild rhabdomyolysis secondary to fall CK on admission was 894 CK level was 759 received gentle hydration Increase fluid intake Hypertension Resume HCTZ/Lisinopril on discharge BP stable. Tobacco abuse Counseling on smoking cessation Hx alcohol abuse. Pt denies any alcohol intake Alcohol level <3 Anxiety/Mood disorder Requested his health documents from [facility] Psych med on hold for now Will decrease Xanax to 0.5 mg BID Follow up with Psych at the [facility] Chronic anemia Hemoglobin stable DM2 Hba1c 7.3 (09/14/17) Well control Continue monitor BS Oral DM med on hold DVT px on Lovenox subq Code Status DNR Disposition Follow up with your physicians at the [facility] Discharge home with home health services Total time spent on discharge = 35 minutes This includes examination of the patient, discharge planning, medication reconciliation, and communication with other providers. Discharge Instructions DI: Medical v5 Discharge Instructions Date of Service Sep 16, 2017. Admission Reason for Admission: Left-Sided Weakness, Rhabomyolysis Discharge Discharge Diagnosis / Problem: Altered Mental Status, Mild Rhabdomyolysis, Anxiety/Mood disorder Discharge Goals Goal(s): Decrease discomfort, Improve function, Increase independence, Improve disease control Activity Recommendations Activity Limitations: resume your previous activity (as tolerated) . Instructions / Follow-Up Instructions / Follow-Up Follow up with your primary care provider at the [facility] within 1 week (Please call to schedule follow appointment) Follow up with neurology at the [facility] Please decrease the trazodone 50mg Hs and Xanax to 0.5 mg BID Please hold next dose of trazodone, Xanax and tramadol if you become drowsy and lethargy Do not drive or operate any machine after taking trazodone, Xanax and tramadol Counseling on smoking cessation Continue physical therapy (Case management arranged you with home [facility] services ) Fall precaution Current Hospital Diet Patient's current hospital diet: AHA Diet (Heart Healthy), Diabetes Type 2 Diet Discharge Diet Recommended Diet: AHA Diet (Heart Healthy), Diabetes Type 2 Diet Pending Studies Studies pending at discharge: no Laboratory Results Hemoglobin A1c Test 09/14/17 21:28 Range/Units Estimated Average Glucose 163 mg/dl Hemoglobin A1c 7.3 H 4.5-5.6 % Lipid Panel Test 09/15/17 05:10 Range/Units Triglycerides Level 93 0-150 mg/dl Cholesterol Level 79 0-200 mg/dl HDL Cholesterol 36 mg/dl Cholesterol/HDL Ratio 2.2 LDL Cholesterol, Calculated 24 mg/dl Medical Emergencies . Who to Call and When: Medical Emergencies: If at any time you feel your situation is an emergency, please call 911 immediately. . Non-Emergent Contact Non-Emergency issues call your: Primary Care Provider Call Non-Emergent contact if: you have any medication questions . . "Provider Documentation" section prepared by Yvrose Michele. .
--- NOTE | 2017-10-10 09:01 | EDITING REQUIRED CODING QUERY ---
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 Please assist us with the question(s) below: Coding Question: The following documentation was taken from notes throughout the record: Encephalopathy Possible related to polypharmacy ( on Xanax, Buproprion, olanzapine, trazodone) suspect a mix of meds taken inappropriately was the cause of the event 72 year old male s/p MS change- possible medication error Pt said that now that he remembered that he took an additional trazodone and xanax Please clarify below to the best of your knowledge. Thank you! (X) Toxic Encephalopathy due to medication taken incorrectly () Toxic Encephalopathy, meds taken correctly () Encephalopathy, unspecified () Other, explain Thank you! Kasie Colbert Principal Diagnosis: "_that condition established after study, to be chiefly responsible for occasioning the admission of the patient to the hospital for care." Co-Existing Principal Diagnosis: "_when two or more diagnoses equally meet the criteria for principal diagnosis as determined by the circumstances of admission, diagnostic work up, and/or therapy provided, and the Alphabetic Index, Tabular List, or another coding guideline does not provide sequencing direction, any one of the diagnoses may be sequenced first." "When the physician has documented what appears to be a current diagnosis in the body of the record, but has not included the diagnosis in the final diagnostic statement, the physician should be asked whether the diagnosis should be added." (Source Coding [facility] 2 QTR90. p3-4)
== END 2017-09-16 17:39 | disposition home health service (06) | DRG 917 ==
LOC: EDBD 20:55 → C.EDB 20:56 → C.MED 23:35 → ENRESERV 23:49
PROVIDERS: ADMIT Internal Medicine; ATTEND Internal Medicine
DX: T42.4X1A Poisoning by benzodiazepines, accidental (unintentional), initial encounter (principal); G92 Toxic encephalopathy; M62.82 Rhabdomyolysis; R47.81 Slurred speech; J44.9 Chronic obstructive pulmonary disease, unspecified; E11.9 Type 2 diabetes mellitus without complications; G20 Parkinson's disease; R21 Rash and other nonspecific skin eruption; F41.9 Anxiety disorder, unspecified; E78.5 Hyperlipidemia, unspecified; I10 Essential (primary) hypertension; E83.42 Hypomagnesemia; D64.9 Anemia, unspecified; R41.82 Altered mental status, unspecified; F17.200 Nicotine dependence, unspecified, uncomplicated; Z66 Do not resuscitate; Z79.84 Long term (current) use of oral hypoglycemic drugs; Z79.899 Other long term (current) drug therapy; Z91.14 Patient's other noncompliance with medication regimen; Z91.81 History of falling